=== PATIENT | male | born 1995 | race Two or more races ===

== ENCOUNTER 2020-06-29 20:32 | Emergency (ER) | payer BC, OTHER ==
[~2020-06-29] VITALS: Ht 172.7 cm; Wt 72.6 kg
--- NOTE | 2020-06-29 20:58 | NUR ---
pt ambulated to room, calm and cooperative. placed in gurney and into gown, and placed on cr monitor, siderails up x2, and call light within reach. upon interview of pt, he states that he took the "whole bottle" of melatonin, about noon, yesterday. states he did it to try and go to sleep. when asked if to go to sleep "permanently" he states yes. Has had SI thoughts for some time now, according to the pt. and has made this attempt.
[2020-06-29 21:21] LABS: BASOPHILS % (AUTO) 1 % (0-1); EOSINOPHILS % (AUTO) 0 % (1-7); LYMPHOCYTES % (AUTO) 14 % (22-44); MEAN CORPUSCULAR HGB CONC 34.1 g/dL (33.2-36.2); MEAN PLATELET VOLUME 7.7 fL (7.4-10.4); MONOCYTES % (AUTO) 3 % (2-9); NEUTROPHILS % (AUTO) 82 % (42-75); PLATELET COUNT 300 x10^3/uL (130-400); RED BLOOD COUNT 4.73 x10^6/uL (4.38-5.82); RED CELL DISTRIBUTION WIDTH 13.4 % (9.4-14.8)
[2020-06-29 21:23] LABS: MD NO
[2020-06-29 21:33] LABS: ALANINE AMINOTRANSFERASE 27 U/L (12-78); ALBUMIN 4.4 g/dL (3.4-5.0); ANION GAP 9 mmol/L (5-15); CALCIUM 8.6 mg/dL (8.5-10.1); CHLORIDE 109 mmol/L (98-107); CREATININE 1.36 mg/dL (0.7-1.3)
[2020-06-29 21:35] LABS: ALKALINE PHOSPHATASE 62 U/L (45-117); BILIRUBIN,TOTAL 0.3 mg/dL (0.2-1.0); SALICYLATE LEVEL < 1.7 mg/dL (2.8-20.0); TOTAL PROTEIN 8.2 g/dL (6.4-8.2)
--- NOTE | 2020-06-29 21:40 | NUR ---
pt moved to room 3, after he stated SI.
--- NOTE | 2020-06-29 21:53 | NUR ---
PT TRANSFERRED TO THIS RNS ROOM AT THIS TIME, CHANGED INTO GOWN, BELONGINGS BAGGED, SISTER TAKING BELONGINGS HOME, DENIES WANTING TO LOCK BELONGINGS IN LOCKER. ROOM SECURED, SI PRECAUTIONS IN PLACE, SITTER IN LINE OF SIGHT, DAGOBERTO.
--- NOTE | 2020-06-29 21:54 | NUR ---
05/19 BELONGINGS BAGS TO GO WITH SISTER WHO IS TAKING BELONGINGS HOME, DENIES WANTING TO LOCK BELONGINGS IN LOCKER.
--- NOTE | 2020-06-29 22:46 | NUR ---
urine walked to lab at this time. pt nad, resting on gurney, appears comfortable, denies additional needs at this time, bed in lowest, sitter in line of sight, si precautions in place, room secured, wctm.
[2020-06-29 23:26] LABS: AMPHETAMINE SCREEN, URINE Negative (Negative); BARBITURATE SCREEN, URINE Negative (Negative); BENZODIAZEPINE SCREEN, URINE Negative (Negative); CANNABINOID SCREEN, URINE Negative (Negative); COCAINE SCREEN, URINE Negative (Negative); METHADONE SCREEN, URINE Negative (Negative); OPIATE SCREEN, URINE Negative (Negative)
--- NOTE | 2020-06-29 23:38 | NUR ---
pt resting on gurney, nad, even and unlabored respirations noted, bed in lowest, rails engaged, si precautions in place, sitter in line of sight, wctm.
--- NOTE | 2020-06-30 00:21 | NUR ---
TP: PACKET FAXED TO [facility]
--- NOTE | 2020-06-30 01:24 | NUR ---
bhu accepting pt. pt resting on gujaja, nad, no change in condition, wctm.
--- NOTE | 2020-06-30 01:45 | NUR ---
Covering primary for break, pt has sister at bedside. Primary nurse has approved this. Pt is waiting for tx to [facility]. Sitter in line of site.
[2020-06-30 02:30] VITALS: BP 134/75
--- NOTE | 2020-06-30 02:31 | NUR ---
pt swabbed and swab walked to lab, pt nad, no change in condition, wctm.
--- NOTE | 2020-06-30 03:51 | NUR ---
report called to mary tellez, pt to be trasnferred at this time, nad, denies additional needs, no changes in condition, wctm.
== END 2020-06-30 04:11 ==
LOC: ED 06-30 00:12
DX: T45.0X2A Poisoning by antiallergic and antiemetic drugs, intentional self-harm, initial encounter (principal); Z20.822 Contact with and (suspected) exposure to COVID-19; T14.91XA Suicide attempt, initial encounter; R00.0 Tachycardia, unspecified; Y92.89 Other specified places as the place of occurrence of the external cause
CPT/HCPCS: 36415; 80053; 80299; 80307; 80320; 80329; 85025; 87635; 93005; 99285; G0480

== ENCOUNTER 2020-06-30 03:54 | Inpatient (IN) | payer BC ==
[~2020-06-30] VITALS: Ht 172.7 cm; Wt 68.5 kg
[2020-06-30] MEDS ORDERED: BISACODYL 10 MG SUPP PR PRN (04:30)
[2020-06-30] MEDS ORDERED: ACETAMINOPHEN 325 MG TABLET PO PRN (04:30)
[2020-06-30] MEDS ORDERED: POLYETHYLENE GLYCOL 17 GM PACKET PO PRN (04:30)
[2020-06-30] MEDS ORDERED: DOCUSATE 100 MG CAPSULE PO PRN (04:30)
[2020-06-30] MEDS ORDERED: ONDANSETRON ODT 4 MG PO PRN (04:30)
[2020-06-30 04:55] VITALS: BP 132/86
[2020-06-30 06:48] LABS: CHOL/HDL RATIO 2.2; FREE T4 (FREE THYROXINE) 1.06 ng/dL (0.76-1.46)
[2020-06-30 07:17] LABS: MICROSCOPIC INDICATED
[2020-06-30 07:23] VITALS: BP 116/73
[2020-06-30 08:21] LABS: ANION GAP 9 mmol/L (5-15); CALCIUM 8.6 mg/dL (8.5-10.1); CHLORIDE 108 mmol/L (98-107)
[2020-06-30] MEDS ORDERED: ESCITALOPRAM 10MG TABLET PO ONE (15:30)
[2020-06-30 19:26] VITALS: BP 134/75
[2020-07-01 07:00] VITALS: BP 144/89
[2020-07-01] MEDS: ESCITALOPRAM 10MG TABLET PO SCH (08:27)
[2020-07-01 19:42] VITALS: BP 120/71
[2020-07-02 07:58] VITALS: BP 107/68
[2020-07-02] MEDS: ESCITALOPRAM 10MG TABLET PO SCH (08:00)
[2020-07-02] MEDS ORDERED: ESCI10TA97 PO (14:03)
== END 2020-07-02 15:14 | disposition home or self-care (01) | DRG 885 ==
LOC: 3E 04:08
PROVIDERS: ADMIT Psychiatry & Neurology Psychosomatic Medicine; ATTEND Psychiatry & Neurology Psychosomatic Medicine
DX: F33.2 Major depressive disorder, recurrent severe without psychotic features (principal); N28.9 Disorder of kidney and ureter, unspecified; T45.0X2A Poisoning by antiallergic and antiemetic drugs, intentional self-harm, initial encounter; T45.0X1A Poisoning by antiallergic and antiemetic drugs, accidental (unintentional), initial encounter; Y92.89 Other specified places as the place of occurrence of the external cause; Z79.899 Other long term (current) drug therapy; Z91.5 Personal history of self-harm; Z83.3 Family history of diabetes mellitus
CPT/HCPCS: 36415; 71045; 80048; 80061; 81001; 82607; 84439; 84443; 93005

== ENCOUNTER 2020-10-14 07:34 | Emergency (ER) | payer BC ==
[~2020-10-14] VITALS: Ht 177.8 cm; Wt 70.0 kg
[~2020-10-14 07:34] MED LIST: ESCI10TA97 PO
--- NOTE | 2020-10-14 07:42 | NUR ---
PT BIBA FROM [facility] FOR C/O ETOH LAST NIGHT. PT FOUND SLEEPING OUTSIDE BY STAFF MEMBERS THIS MORNING. PER EMS PT STATED HE ONLY DRANK ETOH, DENIES DRUG USE. PER EMS PT HAS BEEN VOMITING FLEXOGRAPHIC PRINTING MACHINIST. PT HAS 18G R-UPPER ARM, RECEIVED 250 NS, 4 ZOFRAN FLEXOGRAPHIC PRINTING MACHINIST. PT CONNECTED TO ALL MONITORS. PT RESPONSIVE TO NAME.
--- NOTE | 2020-10-14 07:55 | NUR ---
PA AT BS
--- NOTE | 2020-10-14 08:20 | NUR ---
PT SITTING ON GURNEY, CONNECTED TO ALL MONITORS. RESPONSIVE TO NAME. CALL LIGHT WITHIN REACH. BED RAILS UP X2, ASPIRATION PRECAUTIONS IN PLACE
--- NOTE | 2020-10-14 08:50 | NUR ---
REPORT TO POOJA FLORES
--- NOTE | 2020-10-14 08:50 | NUR ---
Report received at bedside and care assumed. Pt with ALOC secondary to intoxication per report. Assessment reveals no response to verbal stimulus, no eye opening, no verbal response and withdrawal from pain only. VS stable on RA. No incontinence at this time with chucks under pt noted to be dry. Side rails up x2, covered with blankets and call light in reach across lap.
--- NOTE | 2020-10-14 12:45 | NUR ---
Pt still ALOC and does not respond to voice with moaning and localizing to painful stimulus present. VSS.
--- NOTE | 2020-10-14 13:45 | NUR ---
Pt able to get up, get dressed and walk to restroom per wind tunnel technician during roadtest.
[2020-10-14 14:06] VITALS: BP 118/66
== END 2020-10-14 14:09 | disposition home or self-care (01) ==
LOC: ED 09:35 → UNDOADMOB 09:57 → EDIP 09:57 → ED 14:03
DX: F10.120 Alcohol abuse with intoxication, uncomplicated (principal); Y90.0 Blood alcohol level of less than 20 mg/100 ml
CPT/HCPCS: 99285